=== PATIENT | female | born 1995 | race Caucasian/White ===

== ENCOUNTER 2017-03-12 20:46 | Emergency (ER) | payer MEDICAID ==
[2017-03-12 20:48] VITALS: BP 123/85; PULSE 88; RESP 16; TEMP 96.7; O2SAT 100
--- NOTE | 2017-03-12 21:24 | PD ---
HPI Chief Complaint: Related Problem Time Seen by Provider: 20:58 Travel History International Travel<30 days: No Contact w/Intl Traveler<30days: No Traveled to known affect area: No History of Present Illness HPI The patient was seen and examined in the presence of the nurse. This patient complains of some pelvic cramping. It started one hour ago and lasted about 30 minutes and resolved spontaneously. No alleviating factors. She reports that she thinks she is 13 weeks using menstrual dates. She has an OB physician and has had one visit. She is going back in 2 weeks. No ultrasound was done. Symptoms severity was moderate when it occurred. No vaginal bleeding or discharge or fever. No exacerbating factors PFSH Past Medical History ?: Social History Alcohol Use: No Tobacco Use: No Substance Use: No Allergies-Medications Reported Meds & Prescriptions Reported Meds & Active Scripts Active Macrobid (Nitrofurantoin Monohydrate Macrocrystals) 100 Mg Capsule 100 Mg PO BID Review of Systems General / Constitutional: No: Fever Eyes: No: Visual changes HENT: No: Headaches Cardiovascular: No: Chest Pain or Discomfort Respiratory: No: Shortness of Breath Gastrointestinal: No: Abdominal Pain Genitourinary: Positive: Pelvic Pain, No: Dysuria Musculoskeletal: No: Pain Skin: No Rash Neurologic: No: Weakness Psychiatric: No: Depression Endocrine: No: Polydipsia Hematologic/Lymphatic: No: Easy Bruising Physical Exam Narrative GENERAL: Well-nourished, well-developed patient in no apparent distress. SKIN: Focused skin assessment reveals no rash and nodules. Skin is Warm and dry. HEAD: Atraumatic. Normocephalic. EYES: Pupils equal and round. No scleral icterus. No injection or drainage. ENT: No nasal bleeding or discharge. Mucous membranes pink and moist. NECK: Trachea midline. No JVD. CARDIOVASCULAR: Regular rate and rhythm. No murmur appreciated. RESPIRATORY: No accessory muscle use. Clear to auscultation. Breath sounds equal bilaterally. GASTROINTESTINAL: Abdomen soft, non-tender, nondistended. Hepatic and splenic margins not palpable. MUSCULOSKELETAL: No obvious deformities. No clubbing. No cyanosis. No edema. NEUROLOGICAL: Awake and alert. No obvious cranial nerve deficits. Motor grossly within normal limits. Normal speech. PSYCHIATRIC: Appropriate mood and affect; insight and judgment normal. Pelvic: Cervix closed with no motion tenderness. No blood or discharge in the vault Data Data Last Documented VS Vital Signs Date Time Temp Pulse Resp B/P (MAP) Pulse Ox O2 Delivery O2 Flow Rate FiO2 03/12/17 20:48 96.7 88 16 123/85 (98) 100 Room Air Orders Orders Urinalysis - C+S If Indicated (03/12/17 21:16) Urine Culture (03/12/17 21:40) Ed Discharge Order (03/12/17 22:17) Labs Laboratory Tests Test 03/12/17 21:40 Urine Color YELLOW Urine Turbidity HAZY Urine pH 6.0 Urine Specific [place] 1.021 Urine Protein 30 mg/dL Urine Glucose (UA) NEG mg/dL Urine Ketones NEG mg/dL Urine Occult Blood NEG Urine Nitrite NEG Urine Bilirubin NEG Urine Urobilinogen LESS THAN 2.0 MG/DL Urine Leukocyte Esterase MOD Urine RBC 1 /hpf Urine WBC 19 /hpf Urine Squamous Epithelial Cells 2 /hpf Urine Amorphous Sediment RARE Urine Mucus MANY /lpf Microscopic Urinalysis Comment CULTURE INDICATED MDM Medical Decision Making Medical Screen Exam Complete: Yes Emergency Medical Condition: Yes Medical Record Reviewed: Yes Differential Diagnosis Ectopic , miscarriage, UTI Narrative Course I have reviewed the patient's electronic medical record. I did a bedside transabdominal ultrasound which has revealed an intrauterine fetus with heart rate of 140 and good movement Ectopic is ruled out Urinalysis shows 19 white cells and will be cultured. Given her I'll treat her with Macrobid She should call her OB physician tomorrow for follow-up Pelvic rest suggested Diagnosis Primary Impression: Pelvic pain affecting in first trimester, antepartum Additional Impression: Pyuria Additional Instructions: Call OB physician tomorrow for follow-up Use pelvic rest Med/Other Pt SpecificInfo: Other Scripts Nitrofurantoin Monohydrate Macrocrystals (Macrobid) 100 Mg Capsule 100 MG PO BID for Infection, #10 CAP 0 Refills Prov: Guanaco Ellsworth MD 03/12/17 Disposition: 01 DISCHARGE HOME Condition: Stable Guanaco Ellsworth MD Mar 12, 2017 21:24
[2017-03-12 22:06] LABS: BLOOD, URINE NEG (NEG); GLUCOSE,URINE NEG (NEG); KETONE, URINE NEG (NEG); MUCUS URINE MANY /lpf (OCC); NITRITE,URINE NEG (NEG); SQUAMOUS EPITHELIAL CELL URINE 2 /hpf (0-5); URINE COLOR YELLOW (YELLW/STRAW)
[2017-03-12 22:09] LABS: COMMENT (UR) CULTURE INDICATED; CULTURE IF INDICATED CULTURE INDICATED
[2017-03-12] MEDS ORDERED: MACR100C2 PO (22:13)
[2017-03-13 00:49] VITALS: BP 130/75; PULSE 87; RESP 16; O2SAT 100
[2017-03-13 02:11] VITALS: BP 118/67; PULSE 80; RESP 16; O2SAT 97
[2017-03-13 06:41] VITALS: BP 102/59; PULSE 84; RESP 16; TEMP 97.4; O2SAT 100
[2017-03-13 10:00] VITALS: BP 124/82; PULSE 87; RESP 18
[2017-03-13] MEDS ORDERED: PROZ20CA11 PO (12:01)
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
--- NOTE | 2017-03-13 12:06 | PD ---
Physical Exam Date Seen by Provider: Mar 13, 2017 Narrative 21y female presents to the ED and upon discharge, made a comment that she was depressed and had suicidal ideations. Pt was evaluated by Dr. Martinez and recommended outpatient follow up. The Herron act has been lifted. Pt denies suicidal or homicidal ideations. Data Data Last Documented VS Vital Signs Date Time Temp Pulse Resp B/P (MAP) Pulse Ox O2 Delivery O2 Flow Rate FiO2 03/13/17 10:00 87 18 124/82 (96) Room Air 03/13/17 06:41 97.4 100 Orders Orders Urinalysis - C+S If Indicated (03/12/17 21:16) Urine Culture (03/12/17 21:40) Ed Discharge Order (03/12/17 22:17) Psych Screen (03/12/17 23:44) Drug Screen, Random Urine (03/12/17 23:44) Diet Regular Basic (03/13/17 Breakfast) Labs Laboratory Tests Test 03/12/17 21:40 Urine Color YELLOW Urine Turbidity HAZY Urine pH 6.0 Urine Specific [place] 1.021 Urine Protein 30 mg/dL Urine Glucose (UA) NEG mg/dL Urine Ketones NEG mg/dL Urine Occult Blood NEG Urine Nitrite NEG Urine Bilirubin NEG Urine Urobilinogen LESS THAN 2.0 MG/DL Urine Leukocyte Esterase MOD Urine RBC 1 /hpf Urine WBC 19 /hpf Urine Squamous Epithelial Cells 2 /hpf Urine Amorphous Sediment RARE Urine Mucus MANY /lpf Microscopic Urinalysis Comment CULTURE INDICATED Urine Opiates Screen NEG Urine Barbiturates Screen NEG Urine Amphetamines Screen NEG Urine Benzodiazepines Screen NEG Urine Cocaine Screen NEG Urine Cannabinoids Screen NEG MDM Supervised Visit with ARIAN: Yes Diagnosis Primary Impression: Pelvic pain affecting in first trimester, antepartum Additional Impression: Pyuria Patient Instructions: General Instructions, Urinalysis (GEN), Abdominal Pain in (ED) Additional Instruction: Call OB physician tomorrow for follow-up Use pelvic rest Scripts Fluoxetine (Prozac) 20 Mg Cap 20 MG PO DAILY, #30 CAP 0 Refills Prov: Brandon Martinez MD 03/13/17 Nitrofurantoin Monohydrate Macrocrystals (Macrobid) 100 Mg Capsule 100 MG PO BID for Infection, #10 CAP 0 Refills Prov: Guanaco Ellsworth MD 12/13/17 Disposition: 01 DISCHARGE HOME Condition: Stable Justice,Dixie PA Mar 13, 2017 12:06
[2017-03-13] MEDS ORDERED: MACR100C2 PO (13:18)
== END 2017-03-13 14:27 | disposition home or self-care (01) ==
LOC: NEPD 20:46 → NEPJ 03-13 14:27
DX: O26.891 Other specified pregnancy related conditions, first trimester (principal); R10.2 Pelvic and perineal pain; O23.41 Unspecified infection of urinary tract in pregnancy, first trimester; O99.341 Other mental disorders complicating pregnancy, first trimester; R45.851 Suicidal ideations; F32.9 Major depressive disorder, single episode, unspecified; F43.21 Adjustment disorder with depressed mood; J45.909 Unspecified asthma, uncomplicated; Z79.899 Other long term (current) drug therapy
CPT/HCPCS: 80307; 81001; 87086; 99284

== ENCOUNTER 2017-09-15 16:48 | Inpatient (IN) | payer MEDICAID ==
[2017-09-15] VITALS (38 sets, daily range): BP systolic 133–158; BP diastolic 91–105; PULSE 78–103; RESP 17–18; TEMP 98.7; O2SAT 99–100
[~2017-09-15] VITALS: Ht 154.9 cm; Wt 63.0 kg
[~2017-09-15 16:48] MED LIST: MACR100C2 PO; PROZ20CA11 PO
[2017-09-15] MEDS ORDERED: LACTATED RINGER'S 1000 ML INJ 1,000 ML IV PRN (17:38)
--- NOTE | 2017-09-15 17:38 | PD ---
HPI Chief Complaint High blood pressure in the office Date Seen: Sep 15, 2017 Time Seen: 17:33 Travel History International Travel<30 Days: No Contact w/Intl Traveler<30Days: No Known Affected Area: No History of Present Illness HPI 22-year-old who is at 40 weeks gestation comes in today because of an elevated blood pressure in the office. Patient has been seeing Svitlana Garcia for care and states in the office her blood pressure was 144/92. Patient denies visual changes peripheral edema or abdominal pain. She has not been checked in the office but has had a group B strep that was negative. Patient denies any antepartum complications and complains of a history of asthma but is not on any medication and states that has not been an issue for a couple of years. Patient states that there was some concerns of low platelets somewhere during her care but there was no follow-up concerning this and she did not have any follow-up blood work. Weeks Gestation: 40 Para: 0 : 1 History Past Medical History Narrative Medical Remote history of asthma on no medications Medical History: Denies Significant Hx Past Surgical History Surgical History: No Previous Surgery Family History Family History: Negative Social History Alcohol Use: No Tobacco Use: No Substance Abuse: No Allergies-Medications (Allergen,Severity, Reaction): Coded Allergies: No Known Allergies (Verified Allergy, Unknown, 03/13/17) Home Meds Active Scripts Nitrofurantoin Monohydrate Macrocrystals (Macrobid) 100 Mg Capsule, 100 MG PO BID for Infection, #10 CAP 0 Refills Prov:Guanaco Ellsworth MD 03/13/17 Fluoxetine (Prozac) 20 Mg Cap, 20 MG PO DAILY, #30 CAP 0 Refills Prov:Brandon Martinez MD 03/13/17 Review of Systems Except as stated in HPI: all other systems reviewed are Neg Physical Exam Narrative GENERAL: Well-nourished, well-developed patient. SKIN: Warm and dry. HEAD: Normocephalic and atraumatic. EYES: No scleral icterus. No injection or drainage. ENT: No nasal drainage noted. Mucous membranes pink. Airway patent. NECK: Supple, trachea midline. No JVD. CARDIOVASCULAR: Regular rate and rhythm without murmurs, gallops, or rubs. RESPIRATORY: Breath sounds equal bilaterally. No accessory muscle use. ABDOMEN/GI: Abdomen soft, non-tender, bowel sounds present, no rebound, no guarding Gravid to [36-] weeks size Fundal Height: [-] GENITOURINARY: External Genitalia: intact and normal in appearance BUS glands: [Normal-] Cervix: [Posterior] Dilatation: [-1] Effacement: [75-] Station: [--3] Presentation: [Vertex] Membranes: [intact or ruptured] intact Uterine Contractions: [-] Absent FHT's: Category: [-] 1 Baseline: [-] 140 Reactive: [-] Moderate Variability: [-] Moderate Decels: [-] Absent EXTREMITIES: No cyanosis or edema. BACK: Nontender without obvious deformity. No CVA tenderness. NEUROLOGICAL: Awake and alert. Motor and sensory grossly within normal limits. Five out of 5 muscle strength in all muscle groups. Normal speech. Data Data Vital Signs Reviewed: Yes Orders Orders Ob (2e) Additional Admit Info (09/15/17 17:28) Group B Strep: Negative MDM Medical Record Reviewed: Yes Plan 22-year-old who is at 40 weeks with elevated blood pressure. Blood pressure here in the OB ED has been 130-147/92-99 Gestational hypertension at term necessitating induction of labor Order PIH labs and check platelets prior to induction Diagnosis Diagnosis: Primary Impression: Gestational hypertension without significant proteinuria in third trimester Additional Impression: 40 weeks gestation of Regi Buchanan MD Sep 15, 2017 17:38
[2017-09-15] MEDS ORDERED: MAGNESIUM SULFATE 40 GM PREMIX 1,000 ML IV SCH (17:39)
[2017-09-15] MEDS ORDERED: LIDOCAINE HCL 1% 50 ML VIAL I-DERMAL PRN (17:45)
[2017-09-15] MEDS ORDERED: MAGNESIUM SULFATE 4 GM PREMIX 100 ML IV ONE (17:45)
[2017-09-15] MEDS ORDERED: OXYTOCIN 30 UNITS-500ML PREMIX 500 ML IV ONE (17:45)
[2017-09-15] MEDS ORDERED: LABETALOL HCL 100 MG/20 ML VIAL IV PUSH PRN ×3 (17:45→18:00)
[2017-09-15] MEDS ORDERED: SODIUM CHLORID 0.9% 500 ML INJ 500 ML IV PRN (17:45)
[2017-09-15] MEDS ORDERED: LIDOCAINE HCL 1% 50 ML VIAL INFIL PRN (17:45)
[2017-09-15] MEDS ORDERED: CALCIUM GLUCONATE 10% 1 GM/10 ML VIAL IV PUSH PRN (17:45)
[2017-09-15] MEDS ORDERED: CITRIC ACID-SODIUM CITRATE LIQ 30 ML UDC PO SCH (17:45)
[2017-09-15] MEDS ORDERED: MINERAL OIL 10 ML VIAL TOPICAL PRN (17:45)
[2017-09-15] MEDS ORDERED: SODIUM CHLOR 0.9% 1000 ML INJ 1,000 ML IV PRN (17:58)
[2017-09-15 18:15] LABS: AUTOMATED NEUTROPHIL # 4.4 TH/MM3 (1.8-7.7); BASOPHIL % 0.5 % (0.0-2.0); EOSINOPHIL % 0.5 % (0.0-4.0); HEMATOCRIT 31.2 % (35.0-46.0); HEMOGLOBIN 10.4 GM/DL (11.6-15.3); LYMPH % 23.1 % (9.0-44.0); LYMPHOCYTE # 1.5 TH/MM3 (1.0-4.8); MEAN CELL VOLUME 85.5 FL (80.0-100.0); MEAN CORPUSCULAR HEMOGLOBIN 28.5 PG (27.0-34.0); MEAN CORPUSCULAR HGB CONC 33.4 % (32.0-36.0); MEAN PLATELET VOLUME 12.4 FL (7.0-11.0); MONO % 6.6 % (0.0-8.0); MONOCYTE # 0.4 TH/MM3 (0-0.9); NEUT % 69.3 % (16.0-70.0); PLATELET COUNT 104 TH/MM3 (150-450); RED BLOOD COUNT 3.65 MIL/MM3 (4.00-5.30); RED CELL DISTRIBUTION WIDTH 14.7 % (11.6-17.2); WHITE BLOOD COUNT 6.4 TH/MM3 (4.0-11.0)
[2017-09-15] MEDS: LACTATED RINGER'S 1000 ML INJ 1,000 ML IV SCH (18:23)
[2017-09-15 18:34] LABS: ALBUMIN 2.9 GM/DL (3.4-5.0); ALT (GPT) 12 U/L (9-42); AST (GOT) 15 U/L (16-38); BICARBONATE 22.9 MEQ/L (21.0-32.0); BLOOD UREA NITROGEN 6 MG/DL (7-18); CALCIUM 8.4 MG/DL (8.5-10.1); CHLORIDE 107 MEQ/L (98-107); GLOMERULAR FILTRATION RATE 107 ML/MIN (>89); GLUCOSE,RANDOM 102 MG/DL (74-106); SODIUM (NA) 141 MEQ/L (136-145)
[2017-09-15 18:36] LABS: ALKALINE PHOSPHATASE 497 U/L (45-117); TOTAL BILIRUBIN ADULT 0.1 MG/DL (0.2-1.0); TOTAL PROTEIN 6.8 GM/DL (6.4-8.2)
[2017-09-15 18:54] LABS: BACTERIA, URINE OCC /hpf; BILIRUBIN, URINE NEG (NEG); BLOOD, URINE NEG (NEG); GLUCOSE,URINE NEG (NEG); KETONE, URINE NEG (NEG); MUCUS URINE FEW /lpf (OCC); NITRITE,URINE NEG (NEG); SQUAMOUS EPITHELIAL CELL URINE 19 /hpf (0-5); URINE COLOR YELLOW (YELLW/STRAW); URINE LEUKOCYTE ESTERASE LARGE (NEG)
[2017-09-15] MEDS ORDERED: SODIUM CHLORIDE 0.9% FLUSH 10 ML FLUSH IV FLUSH PRN (19:00)
[2017-09-15] MEDS ORDERED: OXYTOCIN 30 UNITS-500ML PREMIX 500 ML IV PRN (19:00)
[2017-09-15] MEDS ORDERED: MISOPROSTOL 25 MCG TAB VAGINAL PRN (19:30)
[2017-09-15] MEDS: SODIUM CHLORIDE 0.9% FLUSH 10 ML FLUSH IV FLUSH SCH (21:00)
[2017-09-16] VITALS (61 sets, daily range): BP systolic 121–154; BP diastolic 63–103; PULSE 86–120; RESP 1–20; TEMP 98–99.5; O2SAT 96–100
[2017-09-16] MEDS: LACTATED RINGER'S 1000 ML INJ 1,000 ML IV SCH (07:16)
[2017-09-16] MEDS: SODIUM CHLORIDE 0.9% FLUSH 10 ML FLUSH IV FLUSH SCH (09:00)
[2017-09-16] MEDS ORDERED: LIDOCAINE HCL 1% PF 5 ML AMPULE ONE (09:39)
[2017-09-16] MEDS ORDERED: DOCUSATE SODIUM 50 MG/SENNA 8.6 MG TAB PO PRN (10:30)
[2017-09-16] MEDS ORDERED: SODIUM CHLORIDE 0.9% FLUSH 10 ML FLUSH IV FLUSH PRN (10:30)
[2017-09-16] MEDS ORDERED: BENZOCAINE 20% TOPICAL SPRAY 60 ML CAN TOPICAL PRN (10:30)
[2017-09-16] MEDS ORDERED: WITCH HAZEL 50%/GLYCERIN 12.5% 40 PAD JAR TOPICAL PRN (10:30)
[2017-09-16] MEDS ORDERED: ZOLPIDEM TARTRATE 5 MG TAB PO PRN (10:30)
[2017-09-16] MEDS ORDERED: ONDANSETRON ODT 4 MG TAB PO PRN (10:30)
[2017-09-16] MEDS ORDERED: ALUMINUM/MAGNESIUM/SIMETH 30 ML CUP PO PRN (10:30)
[2017-09-16] MEDS ORDERED: OXYTOCIN 30 UNITS-500ML PREMIX 500 ML IV SCH (10:30)
--- NOTE | 2017-09-16 10:36 | PD.OB.DELI ---
Weeks gestation: 40 Pt started active labor?: Yes Medical induction of labor?: Yes Anesthesia: None Episiotomy: None Vaginal Delivery: Normal Presentation: Occiput anterior Nuchal Cord: None Delayed cord clamping (45 sec): Yes Delivery date: Sep 16, 2017 Delivery time: 10:14 One Minute : 8 Five Minute : 9 Weight: 2785 Placenta: Spontaneous delivery, Intact, 3 vessel cord Laceration: No lacerations Estimated blood loss: 150 mL Additional Information [place] head delivered spontaneously in bed and delivered by nursing staff. Remainder of body delivered by MD. No other complications. Placenta delivered without complications. No lacerations appreciated. Edwin Thornton MD R1 Sep 16, 2017 10:36
[2017-09-16] MEDS ORDERED: LIDOCAINE 2% JELLY 30 ML TUBE TOPICAL ONE (11:00)
[2017-09-16] MEDS: IBUPROFEN 800 MG TAB PO PRN ×2 (11:25→21:10)
[2017-09-16] MEDS ORDERED: LIDOCAINE 2% JELLY 5 ML TUBE TOPICAL ONE (11:30)
[2017-09-16] MEDS: ACETAMINOPHEN 325 MG TAB PO PRN ×2 (16:00→23:44)
[2017-09-16] MEDS ORDERED: DIPHTH/TETANUS/ACEL PERTUSSIS (BOOSTER) 0.5 ML VIAL/PFS IM ONE (16:00)
[2017-09-16] MEDS ORDERED: MEASLES, MUMPS, RUBELLA VACCINE 0.5 ML VIAL SQ ONE (16:00)
[2017-09-16] MEDS ORDERED: SODIUM CHLORIDE 0.9% FLUSH 10 ML FLUSH IV FLUSH SCH (21:00)
[2017-09-17] VITALS (10 sets, daily range): BP systolic 116–144; BP diastolic 75–95; PULSE 61–85; RESP 18; TEMP 98.1–101.5; O2SAT 98–99
--- NOTE | 2017-09-17 06:55 | HHI.OB ---
Subjective Post Day: 1 Remarks day 1 afebrile, VS-blood pressure ranging from 130-150/80 to 90s no medications needed for blood pressure overnight, she has been off magnesium since last night Objective Vitals/I&O Vital Signs Date Time Temp Pulse Resp B/P (MAP) Pulse Ox O2 Delivery O2 Flow Rate FiO2 09/17/17 00:44 16 09/16/17 22:10 18 09/16/17 19:00 18 09/16/17 18:00 17 09/16/17 17:00 17 09/16/17 17:00 8 09/16/17 16:00 93 149/92 (111) 09/16/17 16:00 18 09/16/17 15:00 89 154/91 (112) 09/16/17 14:08 17 09/16/17 14:08 7 09/16/17 14:00 88 17 148/92 (110) 09/16/17 13:00 89 132/96 (108) 09/16/17 12:30 17 09/16/17 12:16 99 146/93 (110) 09/16/17 11:30 18 09/16/17 11:30 93 140/94 (109) 09/16/17 11:15 98.0 18 09/16/17 11:15 97 138/96 (110) 09/16/17 11:00 18 09/16/17 11:00 89 140/92 (108) 09/16/17 10:45 18 09/16/17 10:45 97 139/91 (107) 09/16/17 10:30 102 154/94 (114) 09/16/17 10:30 19 09/16/17 10:21 107 145/89 (107) 09/16/17 10:15 120 09/16/17 10:10 104 09/16/17 10:05 100 09/16/17 10:00 112 09/16/17 10:00 101 138/101 (113) 09/16/17 09:15 98.7 1 09/16/17 09:14 17 09/16/17 09:05 98 97 09/16/17 09:00 104 09/16/17 09:00 97 144/91 (108) 96 09/16/17 08:08 18 6/19/18 08:05 88 97 09/16/17 08:00 92 141/97 (112) 96 09/16/17 08:00 102 09/16/17 07:15 99.0 20 09/16/17 07:10 88 96 09/16/17 07:05 99 97 09/16/17 07:00 103 130/95 (107) 98 09/16/17 07:00 111 Objective Remarks GENERAL: Well-nourished, well-developed patient. CARDIOVASCULAR: Regular rate and rhythm without murmurs, gallops, or rubs. RESPIRATORY: Breath sounds equal bilaterally. No accessory muscle use. ABDOMEN/GI: Abdomen soft, non-tender. Fundus: Firm, non-tender at umbilicus. GENITOURINARY: Light to moderate bleeding. EXTREMITIES: No cyanosis or edema, non-tender, without signs of DVT. Medications and IVs Current Medications Medications (Trade) Dose Ordered Sig/Felipe Route Start Time Stop Time Status Last Admin (Trandate Inj) 20 mg NOW PRN IV PUSH 09/15/17 17:45 (Trandate Inj) 40 mg NOW PRN IV PUSH 09/15/17 18:00 (Trandate Inj) 80 mg NOW PRN IV PUSH 09/15/17 18:00 (Calcium Gluconate Inj) 1 gm UNSCH PRN IV PUSH 09/15/17 17:45 (Cytotec) 25 mcg Q4H PRN VAGINAL 09/15/17 19:30 09/15/17 19:34 (NS Flush) 2 ml BID IV FLUSH 09/15/17 21:00 (NS Flush) 2 ml UNSCH PRN IV FLUSH 09/15/17 19:00 Oxytocin 500 ml @ 0 mls/hr TITRATE PRN IV 09/15/17 19:00 (NS Flush) 2 ml BID IV FLUSH 09/16/17 21:00 (NS Flush) 2 ml UNSCH PRN IV FLUSH 09/16/17 10:30 (Tylenol) 650 mg Q4H PRN PO 09/16/17 10:30 09/16/17 23:44 (Motrin) 800 mg Q8H PRN PO 09/16/17 10:30 09/16/17 21:10 (Americaine 20% Top Spr) 1 spray Q4H PRN TOPICAL 09/16/17 10:30 (Tucks Pads) 1 applic QID PRN TOPICAL 09/16/17 10:30 (Funmilayo-Colace) 2 tab Q12H PRN PO 09/16/17 10:30 (Ambien) 5 mg HS PRN PO 09/16/17 10:30 (Mag-Al Plus Susp Liq) 15 ml Q8H PRN PO 09/16/17 10:30 (Zofran Odt) 4 mg Q6H PRN PO 09/16/17 10:30 Assessment/Plan Assessment and Plan day 1 S/P vaginal delivery yesterday morning, was induced for PIH, was on magnesium sulfate during labor and 12 hours , blood pressures currently in the 130s-150s over 80s-90s no medication is needed for blood pressure at this time Plan to send the patient to the floor, continue to monitor blood pressure Vinay Rossi II, MD Sep 17, 2017 06:55
[2017-09-17] MEDS: IBUPROFEN 800 MG TAB PO PRN ×2 (08:50→17:05)
[2017-09-17] MEDS: SODIUM CHLORIDE 0.9% FLUSH 10 ML FLUSH IV FLUSH SCH (09:00)
[2017-09-17] MEDS: ACETAMINOPHEN 325 MG TAB PO PRN ×2 (11:33→17:05)
[2017-09-17] MEDS ORDERED: SODIUM CHLOR 0.9% 1000 ML INJ 1,000 ML IV SCH (16:15)
--- NOTE | 2017-09-17 16:22 | HHI.FPPN ---
Addendum to progress note ADDENDUM Reason for addendum: Additonal documentation Additional information S: Patient was seen and examined around 3:30 PM due to concerns for increased lower chest and abdominal pain. Nurse reported that the patient appeared pale. Patient reports experiencing sharp pain in her lower chest and her abdomen was very tender. She also feels feverish and is having chills. She denies abnormal/foul-smelling vaginal discharge or dysuria. O: Vitals: BP 143/95, T 101.5 F Gen: Young female patient, appears pale and ill HEENT: Pale MM Pulm: CTAB, poor effort due to pain Cardiac: RRR Chest: Tender to palpation just beneath the xiphoid process Abdomen: Diffusely tender to palpation all over her abdomen. Normoactive bowel sounds EXT: No cyanosis or edema, no calf tenderness A: 22-year-old day 1 vaginal delivery at term presents with fever concerning for endometritis. was complicated by elevated blood pressures. Differential diagnosis includes UTI and pneumonia. P: -Check CBC, BMP, lactate, urinalysis -Stat chest x-ray -Draw blood cultures -Start ampicillin-sulbactam 1500mg IV every 8 hours -Start gentamicin 5 mg/kg IV every 24 hours -Normal saline at 125 mL/hr Discussed with Meredith Gallegos MD R2 Sep 17, 2017 16:22
[2017-09-17] MEDS ORDERED: AMPICILLIN-SULBACTAM INJ 1,500 MG in SODIUM CHLORIDE 0.9% INJ 100 ML IV SCH (17:00)
--- NOTE | 2017-09-17 17:00 | RADRPT ---
EXAM DATE: 09/17/2017 4:19 PM EDT AGE/SEX: 22 years / Female INDICATIONS: Pneumonia, short of breath. CLINICAL DATA: This is the patient's initial encounter. Patient reports that signs and symptoms have been present for 1 day and indicates a pain score of 0/10. MEDICAL/SURGICAL HISTORY: . asthma, just delivered a baby yesterday. None. COMPARISON: No prior exams available for comparison. FINDINGS: A single AP view of the chest demonstrates the lungs to be symmetrically aerated without evidence of mass, infiltrate or effusion. The cardiomediastinal contours are unremarkable. Osseous structures a re intact. CONCLUSION: No acute cardiopulmonary findings. Electronically signed by: Praneeth Rowland MD 09/17/2017 4:59 PM EDT
[2017-09-17 17:06] LABS: HEMATOCRIT 29.7 % (35.0-46.0); HEMOGLOBIN 9.9 GM/DL (11.6-15.3); MEAN CELL VOLUME 85.8 FL (80.0-100.0); MEAN CORPUSCULAR HEMOGLOBIN 28.5 PG (27.0-34.0); MEAN CORPUSCULAR HGB CONC 33.2 % (32.0-36.0); MEAN PLATELET VOLUME 11.4 FL (7.0-11.0); PLATELET COUNT 111 TH/MM3 (150-450); RED BLOOD COUNT 3.46 MIL/MM3 (4.00-5.30); RED CELL DISTRIBUTION WIDTH 15.7 % (11.6-17.2); WHITE BLOOD COUNT 9.8 TH/MM3 (4.0-11.0)
[2017-09-17 17:23] LABS: BICARBONATE 22.6 MEQ/L (21.0-32.0); CALCIUM 7.9 MG/DL (8.5-10.1); CREATININE 0.65 MG/DL (0.50-1.00)
[2017-09-17] MEDS: GENTAMICIN IV SCH (17:55)
[2017-09-17] MEDS: SODIUM CHLORIDE 0.9% IV SCH ×2 (17:55→23:49)
--- NOTE | 2017-09-17 20:17 | HHI.PR ---
PRINTER SLOTTER HELPER Note Note Called to see patient as she fell in the bathroom Patient is a 22-year-old patient he was assessed late this afternoon because of a fever of 101.5, abdominal pelvic pain, and a general feeling of malaise. Patient had normal vital signs blood work was ordered and a chest x- ray as well as blood cultures to assess for infection. Unasyn and gentamicin was ordered and she is gotten the first dose of each earlier this evening. Patient states that she went to the bathroom she felt lightheaded and then she fell. Patient has bruising around her right eye that was apparent this morning that seemed to have come from broken blood vessels that she acquired during the pushing stage of labor. No head head injury is assessed and there was no other trauma that was noted Blood pressure is 142/92 pulse is 92, respirations is 24, O2 saturation is 97% on room air Head and neck exam-patient has the broken blood vessels around the right eye causing some bruising as noted above. No lymphadenopathy is noted Chest is clear to auscultation heart is regular rate and rhythm Abdomen-soft with mild pain to palpation of the uterus Mild lochia is noted it is not malodorous Laboratory Tests Test 09/17/17 16:45 09/17/17 19:35 White Blood Count 9.8 TH/MM3 Red Blood Count 3.46 MIL/MM3 Hemoglobin 9.9 GM/DL Hematocrit 29.7 % Mean Corpuscular Volume 85.8 FL Mean Corpuscular Hemoglobin 28.5 PG Mean Corpuscular Hemoglobin Concent 33.2 % Red Cell Distribution Width 15.7 % Platelet Count 111 TH/MM3 Mean Platelet Volume 11.4 FL Blood Urea Nitrogen 8 MG/DL Creatinine 0.65 MG/DL Random Glucose 86 MG/DL Calcium Level 7.9 MG/DL Sodium Level 140 MEQ/L Potassium Level 4.0 MEQ/L Chloride Level 108 MEQ/L Carbon Dioxide Level 22.6 MEQ/L Anion Gap 9 MEQ/L Estimat Glomerular Filtration Rate 116 ML/MIN Lactic Acid Level 1.8 mmol/L Last 24 hours Impressions Chest X-Ray 09/17/17 0000 Signed Impressions: CONCLUSION: No acute cardiopulmonary findings. Impression- endometritis. CBC is normal, patient does not appear to be septic at this time has a normal blood pressure she is not tachycardic and she is awake and alert. Patient states that her abdominal pain has decreased in intensity since this afternoon Plan-continue antibiotics but will increase her dose of Unasyn to 3 g/h Awaiting results of blood culture Continue IV antibiotics, patient is eating and drinking appropriately Recheck blood work in the morning, monitor closely for any signs of sepsis Regi Buchanan MD Sep 17, 2017 20:17
[2017-09-17 20:31] LABS: BILIRUBIN, URINE NEG (NEG); BLOOD, URINE LARGE (NEG); GLUCOSE,URINE NEG (NEG); HYALINE CAST, URINE 3 /lpf (RARE); KETONE, URINE NEG (NEG); NITRITE,URINE NEG (NEG); SQUAMOUS EPITHELIAL CELL URINE 2 /hpf (0-5); URINE COLOR YELLOW (YELLW/STRAW); URINE LEUKOCYTE ESTERASE LARGE (NEG); WHITE BLOOD CELL CLUMPS MOD
[2017-09-17] MEDS: AMPICILLIN SULBACTAM IV SCH (23:49)
[2017-09-18] MEDS: IBUPROFEN 800 MG TAB PO PRN ×3 (02:28→23:22)
[2017-09-18] MEDS: ACETAMINOPHEN 325 MG TAB PO PRN ×5 (02:29→23:53)
[2017-09-18 03:30] VITALS: BP 133/91; PULSE 74; RESP 18; TEMP 98.3
[2017-09-18 06:12] LABS: BASOPHIL % 0.1 % (0.0-2.0); EOSINOPHIL % 0.1 % (0.0-4.0); HEMATOCRIT 28.4 % (35.0-46.0); HEMOGLOBIN 9.2 GM/DL (11.6-15.3); LYMPH % 15.1 % (9.0-44.0); LYMPHOCYTE # 1.8 TH/MM3 (1.0-4.8); MEAN CELL VOLUME 86.4 FL (80.0-100.0); MEAN CORPUSCULAR HGB CONC 32.4 % (32.0-36.0); MONO % 7.5 % (0.0-8.0); MONOCYTE # 0.9 TH/MM3 (0-0.9); NEUT % 77.2 % (16.0-70.0); PLATELET COUNT 122 TH/MM3 (150-450); RED BLOOD COUNT 3.28 MIL/MM3 (4.00-5.30); RED CELL DISTRIBUTION WIDTH 15.3 % (11.6-17.2); WHITE BLOOD COUNT 11.6 TH/MM3 (4.0-11.0)
[2017-09-18] MEDS: AMPICILLIN SULBACTAM IV SCH ×4 (06:12→23:22)
[2017-09-18] MEDS: SODIUM CHLORIDE 0.9% IV SCH ×5 (06:12→23:22)
[2017-09-18 06:15] LABS: CALCIUM 8.1 MG/DL (8.5-10.1); CREATININE 0.54 MG/DL (0.50-1.00)
[2017-09-18 08:00] VITALS: BP 145/92; PULSE 80; RESP 20; TEMP 98.7
--- NOTE | 2017-09-18 08:48 | HHI.OB ---
Subjective Remarks Patient is a 22-year-old delivered at 40 weeks. Patient is day 2 after . Patient was noted to have significant uterine tenderness yesterday and also had a fall. Patient had a fever up to 101.5 and she was started on Unasyn and gentamicin at that time. Today she feels somewhat improved with decreased abdominal pain, lightheadedness. Patient's pain is well -controlled. Patient reports eating and drinking without any nausea or vomiting. Patient reports minimal bleeding. Patient has passed gas and bowel movements. Patient is walking without lower extremity pain or shortness of breath. Patient reports desire for contraception arranged as outpatient. Objective Vitals/I&O Vital Signs Date Time Temp Pulse Resp B/P (MAP) Pulse Ox O2 Delivery O2 Flow Rate FiO2 09/18/17 08:00 98.7 80 20 145/92 (109) 09/18/17 03:30 98.3 74 18 09/18/17 03:30 133/91 (105) 09/17/17 23:30 98.6 83 18 140/94 (109) 09/17/17 22:30 98.3 61 18 116/75 (89) 09/17/17 21:30 98.3 79 18 126/78 (94) 09/17/17 20:30 98.5 78 18 124/83 (97) 09/17/17 15:43 101.5 09/17/17 15:24 85 09/17/17 15:10 143/95 (111) 99 09/17/17 14:00 98 09/17/17 09:00 98.1 18 Objective Remarks GENERAL: Well-nourished, well-developed patient. CARDIOVASCULAR: Regular rate and rhythm without murmurs, gallops, or rubs. RESPIRATORY: Breath sounds equal bilaterally. No accessory muscle use. ABDOMEN/GI: Abdomen soft. Fundus: Firm, mild diffuse tenderness to palpation but no distention or rebound tenderness. GENITOURINARY: Light to moderate bleeding. EXTREMITIES: No cyanosis or edema, non-tender, without signs of DVT. Medications and IVs Current Medications Medications (Trade) Dose Ordered Sig/Felipe Route Start Time Stop Time Status Last Admin (Trandate Inj) 20 mg NOW PRN IV PUSH 09/15/17 17:45 (Trandate Inj) 40 mg NOW PRN IV PUSH 09/15/17 18:00 (Trandate Inj) 80 mg NOW PRN IV PUSH 09/15/17 18:00 (Calcium Gluconate Inj) 1 gm UNSCH PRN IV PUSH 09/15/17 17:45 (Cytotec) 25 mcg Q4H PRN VAGINAL 09/15/17 19:30 09/15/17 19:34 (NS Flush) 2 ml BID IV FLUSH 09/15/17 21:00 09/17/17 09:00 (NS Flush) 2 ml UNSCH PRN IV FLUSH 09/15/17 19:00 Oxytocin 500 ml @ 0 mls/hr TITRATE PRN IV 09/15/17 19:00 (NS Flush) 2 ml BID IV FLUSH 09/16/17 21:00 (NS Flush) 2 ml UNSCH PRN IV FLUSH 09/16/17 10:30 (Tylenol) 650 mg Q4H PRN PO 09/16/17 10:30 09/18/17 06:20 (Motrin) 800 mg Q8H PRN PO 09/16/17 10:30 09/18/17 02:28 (Americaine 20% Top Spr) 1 spray Q4H PRN TOPICAL 09/16/17 10:30 09/17/17 08:50 (Tucks Pads) 1 applic QID PRN TOPICAL 09/16/17 10:30 09/17/17 08:50 (Funmilayo-Colace) 2 tab Q12H PRN PO 09/16/17 10:30 09/17/17 17:05 (Ambien) 5 mg HS PRN PO 09/16/17 10:30 (Mag-Al Plus Susp Liq) 15 ml Q8H PRN PO 09/16/17 10:30 (Zofran Odt) 4 mg Q6H PRN PO 09/16/17 10:30 Gentamicin Sulfate 315 mg/ Sodium Chloride 107.875 ml @ 100 mls/ hr Q24H IV 09/17/17 18:00 09/17/17 17:55 Sodium Chloride 1,000 ml @ 125 mls/hr Q8H IV 09/17/17 16:15 09/18/17 06:13 Ampicillin Sodium/ Sulbactam Sodium 3000 mg/Sodium Chloride 100 ml @ 200 mls/hr Q6H IV 09/17/17 23:00 09/18/17 06:12 Assessment/Plan Assessment and Plan Patient is a 22-year-old delivered at 40 weeks. Patient is day 2 after . Patient was counseled to do 6 weeks of pelvic rest. Patient was counseled to follow up in 6 weeks. Patient requested follow-up and contraception arranged as outpatient. Patient had fever and uterine tenderness and was started on Unasyn and gentamicin on 09/17. Had a fever at that time but is since been afebrile. Patient had PIH and was treated with magnesium for 12 hours --Afebrile overnight, blood pressures as high as 140/94 --IV Unasyn, gentamicin start on 09/21 endometritis. Will aim for 24- 48 hours of IV antibiotics. Blood cultures pending --Motrin and Tylenol when necessary for pain --Encourage OOB --Pelvic rest for 6 weeks will need follow-up appointment at that time. --Contraception: We will arrange his outpatient --Anticipate discharge possibly tomorrow. Edwin Thornton MD R1 Sep 18, 2017 08:48
[2017-09-18 13:17] VITALS: BP 149/89; PULSE 73; RESP 18; TEMP 98.3
[2017-09-18 14:29] VITALS: BP 148/104; PULSE 110; RESP 20; TEMP 97.8
[2017-09-18 15:47] LABS: BASOPHIL % 0.4 % (0.0-2.0); EOSINOPHIL # 0.1 TH/MM3 (0-0.4); EOSINOPHIL % 0.8 % (0.0-4.0); HEMATOCRIT 28.5 % (35.0-46.0); HEMOGLOBIN 9.6 GM/DL (11.6-15.3); LYMPHOCYTE # 1.6 TH/MM3 (1.0-4.8); MEAN CELL VOLUME 85.3 FL (80.0-100.0); MEAN CORPUSCULAR HEMOGLOBIN 28.7 PG (27.0-34.0); MEAN CORPUSCULAR HGB CONC 33.7 % (32.0-36.0); MEAN PLATELET VOLUME 11.9 FL (7.0-11.0); MONO % 6.7 % (0.0-8.0); MONOCYTE # 0.7 TH/MM3 (0-0.9); NEUT % 77.1 % (16.0-70.0); PLATELET COUNT 125 TH/MM3 (150-450); RED BLOOD COUNT 3.34 MIL/MM3 (4.00-5.30); RED CELL DISTRIBUTION WIDTH 15.4 % (11.6-17.2); WHITE BLOOD COUNT 10.4 TH/MM3 (4.0-11.0)
[2017-09-18 16:24] LABS: ALBUMIN 2.2 GM/DL (3.4-5.0); ALT (GPT) 12 U/L (9-42); AST (GOT) 23 U/L (16-38); BICARBONATE 21.9 MEQ/L (21.0-32.0); BLOOD UREA NITROGEN 7 MG/DL (7-18); CALCIUM 7.9 MG/DL (8.5-10.1); CHLORIDE 111 MEQ/L (98-107); CREATININE 0.56 MG/DL (0.50-1.00); GLOMERULAR FILTRATION RATE 138 ML/MIN (>89); GLUCOSE,RANDOM 98 MG/DL (74-106); SODIUM (NA) 143 MEQ/L (136-145)
[2017-09-18 16:25] LABS: ALKALINE PHOSPHATASE 291 U/L (45-117); TOTAL BILIRUBIN ADULT 0.2 MG/DL (0.2-1.0); TOTAL PROTEIN 5.9 GM/DL (6.4-8.2)
--- NOTE | 2017-09-18 17:11 | RADRPT ---
EXAM DATE: 09/18/2017 3:31 PM EDT AGE/SEX: 22 years / Female INDICATIONS: Chest pain, shortness of breath. CLINICAL DATA: This is the patient's initial encounter. Patient reports that signs and symptoms have been present for 2 days and indicates a pain score of 3/10. MEDICAL/SURGICAL HISTORY: None. None. COMPARISON: No prior exams available for comparison. FINDINGS: Minimal linear parenchymal opacities in the left lung base. The cardiomediastinal contours are unrema rkable. Osseous structures are intact. CONCLUSION: 1. Minimal left lung base atelectasis/scarring. Electronically signed by: Adam Proctor MD 09/18/2017 5:09 PM EDT
[2017-09-18] MEDS: GENTAMICIN IV SCH (17:45)
[2017-09-18 19:26] VITALS: BP 121/92; PULSE 72; RESP 20; TEMP 99
[2017-09-18 23:48] VITALS: BP 139/106; PULSE 66; RESP 18; TEMP 97.8
[2017-09-19] VITALS (7 sets, daily range): BP systolic 134–165; BP diastolic 85–100; PULSE 66–72; RESP 18–20; TEMP 97.9–98.1; O2SAT 100
--- NOTE | 2017-09-19 01:13 | HHI.FPPN ---
Addendum to progress note ADDENDUM Reason for addendum: Additonal documentation Additional information S: Dr Camargo paged 12:28 AM for Ms Celestino's elevated BP to 165/100 and repeat BP 165/99. Nursing reports pt's pain is well controlled. Dr Camargo spoke to Dr Rossi who suggested we treat it at this point. O: VS: BP 165/100 and repeat 165/99 Vital Signs Date Time Temp Pulse Resp B/P (MAP) Pulse Ox O2 Delivery O2 Flow Rate FiO2 09/19/17 00:20 165/99 (121) 09/18/17 23:48 97.8 66 18 09/17/17 15:10 99 A/P: on PPD#3 with severe HTN to 165/100 -Labetalol 100mg PO once -Reevaluate BP in 1-[address] Flo Camargo,Dion Fernández MD R1 Sep 19, 2017 01:13
[2017-09-19] MEDS ORDERED: LABETALOL HCL 100 MG TAB PO ONE (01:15)
[2017-09-19] MEDS: SODIUM CHLORIDE 0.9% IV SCH ×2 (04:57→11:32)
[2017-09-19] MEDS: AMPICILLIN SULBACTAM IV SCH ×2 (04:57→11:32)
[2017-09-19] MEDS ORDERED: IBUP1TAB7 PO (08:17)
[2017-09-19] MEDS ORDERED: LABE100T2 PO (08:17)
[2017-09-19] MEDS ORDERED: PERI PO (08:17)
--- NOTE | 2017-09-19 08:18 | HHI.DCPOC ---
Discharge Care Plan Diagnosis: (1) Vaginal delivery (2) endometritis (3) PIH ( induced hypertension) Report Symptoms to Your Doctor -Temperature above 100.5 degrees -Redness, of incision or excessive or foul smelling drainage -Unusual pain or calf pain -Increased vaginal bleeding -Painful or difficulty urinating -Feelings of extreme sadness or anxiety after 2 weeks Goals to Promote Your Health * To prevent worsening of your condition and complications * To maintain your health at the optimal level Directions to Meet Your Goals Take your medications as prescribed Follow your dietary instruction Follow activity as directed Ensure plenty of rest for recovery Drink fluids for hydration Keep your appointments as scheduled Take your immunizations and boosters as scheduled If your symptoms worsen call your PCP, if no PCP go to Urgent Care Center or Emergency Room Smoking is Dangerous to Your Health. Avoid second hand smoke Call the 24-hour crisis hotline for domestic abuse at Edwin Thornton MD R1 Sep 19, 2017 08:18
== END 2017-09-19 15:24 | disposition home or self-care (01) | DRG 774 ==
LOC: HOBED 16:48 → H2EA 17:33 → H1EA 09-17 09:23
PROVIDERS: ADMIT Obstetrics & Gynecology Obstetrics; ATTEND Obstetrics & Gynecology Obstetrics
PROC: 3E033VJ Introduction of Other Hormone into Peripheral Vein, Percutaneous Approach (ICD-10-PCS; principal; 2017-09-15)
PROC: 10E0XZZ Delivery of Products of Conception, External Approach (ICD-10-PCS; 2017-09-16)
DX: O13.4 Gestational [pregnancy-induced] hypertension without significant proteinuria, complicating childbirth (principal); O86.12 Endometritis following delivery; J45.909 Unspecified asthma, uncomplicated; O99.52 Diseases of the respiratory system complicating childbirth; O26.893 Other specified pregnancy related conditions, third trimester; Z37.0 Single live birth; Z3A.40 40 weeks gestation of pregnancy
CPT/HCPCS: 71045; 71046; 80048; 80053; 80307; 81001; 83605; 84112; 84550; 85025; 85027; 86900; 86901; 87040; 87086; G0481; J0295; J1580; J2590; J3010; J3475; J7030; J7120